=== PATIENT | male | born 1980 | race Caucasian/White ===

== ENCOUNTER 2016-04-29 22:01 | Emergency (ER) | payer MEDICAID, OTHER ==
[~2016-04-29] VITALS: Ht 175.3 cm; Wt 98.6 kg
[~2016-04-29 22:01] MED LIST: DICL75 PO
[2016-04-29 22:21] VITALS: BP 125/78; PULSE 67; RESP 18; TEMP 98.5; O2SAT 96
[2016-04-29] MEDS ORDERED: IBUP400T20 PO (22:43)
[2016-04-29] MEDS ORDERED: DOXY100C PO (23:30)
--- NOTE | 2016-04-29 23:31 | PD ---
HPI Chief Complaint: Bite or Sting Time Seen by Provider: 23:07 Travel History International Travel<30 days: No Contact w/Intl Traveler<30days: No Traveled to known affect area: No History of Present Illness HPI The patient is a 35-year-old male that sustained a tick bite several days ago and the tick was in for several days. It got inflamed around the area but only to 2 cm and did not develop erythema migrans. The patient comes in for antibiotic therapy. PFSH Past Medical History Immunizations Current: Yes Myocardial Infarction: Yes (2009) Tetanus Vaccination: < 5 Years ?: Not Social History Alcohol Use: No Tobacco Use: Yes (1PPD) Substance Use: Yes (OCCASIONAL MARIJUANA) Allergies-Medications (Allergen,Severity, Reaction): Coded Allergies: Bees (Verified Allergy, Intermediate, 04/29/16) Reported Meds & Prescriptions Reported Meds & Active Scripts Active Reported Ibuprofen 400 Mg Tab 400 Mg PO Q4H PRN Review of Systems Except as stated in HPI: all other systems reviewed are Neg Physical Exam Narrative GENERAL: Well-nourished, well-developed patient in no apparent distress. His vital signs are normal. SKIN: Warm and dry. There is a 2 cm diameter erythematous, papular area around the tick bite on the right lateral thigh. There is no red streak present and there is no erythema migrans present. HEAD: Normocephalic. EYES: No scleral icterus. No injection or drainage. NECK: Supple, trachea midline. No JVD or lymphadenopathy. CARDIOVASCULAR: Regular rate and rhythm without murmurs, gallops, or rubs. RESPIRATORY: Breath sounds equal bilaterally. No accessory muscle use. GASTROINTESTINAL: Abdomen soft, non-tender, nondistended. MUSCULOSKELETAL: No cyanosis, or edema. BACK: Nontender without obvious deformity. No CVA tenderness. Data Data Last Documented VS Vital Signs Date Time Temp Pulse Resp B/P Pulse Ox O2 Delivery O2 Flow Rate FiO2 04/29/16 22:21 98.5 67 18 125/78 96 MDM Medical Decision Making Medical Screen Exam Complete: Yes Emergency Medical Condition: Yes Medical Record Reviewed: Yes Differential Diagnosis Tick bite, infected with staph, early erythema migrans, Narrative Course The patient has an infected tick bite. We will need to cover staph as well as give the patient doxycycline for prevention of Lyme disease. Plan: The patient was given Bactroban ointment as well as doxycycline 500 mg twice daily for 10 days. Diagnosis Primary Impression: Infected tick bite of hip Additional Instructions: A heating pad as useful, turn the pad on its lowest setting an interpose a towel between your skin and the pad. Warmth is desirable but not hot. If worse , you may need to return to the emergency department. Med/Other Pt SpecificInfo: Prescription(s) given Scripts Doxycycline Hyclate 100 Mg Qrs293 Mg PO BID #20 CAP Ref 0 Prov:Trevor Montalvo MD 04/29/16 Disposition: 01 DISCHARGE HOME Condition: Stable Trevor Montalvo MD Apr 29, 2016 23:30
[2016-04-29] MEDS ORDERED: MUPI2OIN TOPICAL (23:43)
[2016-04-29] MEDS ORDERED: DOXYCYCLINE HYCLATE 100 MG TAB PO ONE (23:45)
[2016-04-29] MEDS ORDERED: DOXYCYCLINE HYCLATE 100 MG CAP PO ONE (23:45)
== END 2016-04-30 00:15 | disposition home or self-care (01) ==
LOC: PHED 22:01
DX: S70.261A Insect bite (nonvenomous), right hip, initial encounter (principal); F17.210 Nicotine dependence, cigarettes, uncomplicated; W57.XXXA Bitten or stung by nonvenomous insect and other nonvenomous arthropods, initial encounter; Y93.9 Activity, unspecified; Y92.9 Unspecified place or not applicable; Y99.9 Unspecified external cause status
CPT/HCPCS: 99281

== ENCOUNTER 2017-02-15 22:50 | Emergency (ER) | payer MEDICAID ==
[~2017-02-15] VITALS: Ht 175.3 cm; Wt 97.0 kg
[~2017-02-15 22:50] MED LIST changes: -DICL75 PO; +DOXY100C PO; +IBUP1TAB5 PO; +MUPI2OIN TOPICAL
[2017-02-15 22:52] VITALS: BP 191/106; PULSE 70; RESP 16; TEMP 97.8; O2SAT 100
--- NOTE | 2017-02-15 23:24 | PD ---
HPI Chief Complaint: Injury Time Seen by Provider: 23:24 Travel History International Travel<30 days: No Contact w/Intl Traveler<30days: No Traveled to known affect area: No History of Present Illness HPI The patient is a 36 year old male who presents to the [facility] emergency department with a history of at approximately 10:30 PM today while doing an art project with this child cutting his left fourth and fifth digit with utility knife. He reports that it was a new knife, therefore it was very sharp. He reports that he is right hand dominant. He is a chef's assistant. He reports that the bone was sticking out of the open wound on his pinky. The patient reports that he was able to recover it with skin. He reports having severe pain along the lateral aspect of the left hand over the distal fifth metacarpal as well as the proximal fifth digit. The patient has decreased range of motion of the fourth and fifth digit with extension. The patient reports having tingling sensations of the left side of his hand and fourth and fifth digit. The patient denies having any other injury associated with this. His Tetanus was last updated in 2014. [facility] Past Medical History Narrative Medical The patient's past medical history is significant for hypertension diagnosed in 2008, without any recurrence. Diminished Hearing: Yes (LEFT SIDE) Hypertension: Yes Immunizations Current: Yes Myocardial Infarction: Yes (2009 - PT DENIES RI) Tetanus Vaccination: < 5 Years Past Surgical History Narrative Surgical The patient's past surgical history is reportedly none. Oral Surgery: Yes Other Surgery: Yes (LEFT LEG) Social History Alcohol Use: No Tobacco Use: Yes (2 CIGS A DAY) Substance Use: Yes (OCCASIONAL MARIJUANA) Allergies-Medications (Allergen,Severity, Reaction): Coded Allergies: bee venom protein (honey bee) (Verified Allergy, Intermediate, 02/15/17) Reported Meds & Prescriptions Reported Meds & Active Scripts Active Keflex (Cephalexin) 500 Mg Capsule 500 Mg PO QID Narrative Medication None. Review of Systems Except as stated in HPI: all other systems reviewed are Neg General / Constitutional: No: Fever Eyes: No: Visual changes HENT: No: Headaches Cardiovascular: No: Chest Pain or Discomfort Respiratory: No: Shortness of Breath Gastrointestinal: No: Abdominal Pain Genitourinary: No: Dysuria Musculoskeletal: Positive: Myalgias, Arthralgias, Pain Skin: No Rash Neurologic: Positive: Sensory Disturbance, No: Weakness, Focal Abnormalities, Change in Mentation, Slurred Speech Psychiatric: No: Depression Endocrine: No: Polydipsia Hematologic/Lymphatic: No: Easy Bruising Physical Exam Narrative General: The patient is a well-developed well-nourished male in no acute distress Head and Neck exam: Head is normocephalic atraumatic. Eyes: Pupils are equal round and reactive to light. Nose: Midline septum with pink mucous membranes Mouth: Dentition unremarkable. Moist mucus membranes. Posterior oropharynx is not erythematous. No tonsillar hypertrophy. Uvula midline. Airway patent. Neck: No palpable lymphadenopathy. No nuchal rigidity. No thyromegaly. Cardiovascular: Regular rate and rhythm without murmurs, gallops, or rubs. Lungs: Clear to auscultation bilaterally. No wheezes, rhonchi, or rales. Abdomen: Soft, without tenderness to palpation in all 4 quadrants of the abdomen. No guarding, rebound, or rigidity. Normal bowel sounds are audible. Extremities: No clubbing, cyanosis, or edema. 2+ pulses in all 4 extremities. On examination of the left hand, the area of interest the patient reports having pain along the fifth distal metacarpal. The patient has his left fourth and fifth digit flexed. The patient reports that he is unable to extend his fingers at the PIP joint. Along the dorsal aspect of the PIP joint of the fourth and fifth digit there is a 1-1/2 cm laceration noted to both sites. Bleeding is controlled. The patient reports having tingling sensations along the left side of his hand and both the fourth and fifth digit. Back: No spinous process tenderness to palpation. No costovertebral angle tenderness to palpation. Neurologic Exam: Grossly nonfocal. Skin Exam: No rash noted. Skin is warm and dry. Data Data Last Documented VS Vital Signs Date Time Temp Pulse Resp B/P (MAP) Pulse Ox O2 Delivery O2 Flow Rate FiO2 02/16/17 02:45 02/15/17 23:50 19 99 Room Air 02/15/17 22:52 97.8 70 Orders Orders Hand, Complete ([id number]) (02/15/17 23:29) Complete Blood Count With Diff (02/15/17 23:30) Comprehensive Metabolic Panel (02/15/17 23:30) Prothrombin Time / Inr (Pt) (02/15/17 23:30) Act Partial Throm Time (Ptt) (02/15/17 23:30) Iv Access Insert/Monitor (02/15/17 23:30) Ecg Monitoring (02/15/17 23:30) Oximetry (02/15/17 23:30) Sodium Chlor 0.9% 1000 Ml Inj (Ns 1000 M (02/15/17 23:45) Ondansetron Inj (Zofran Inj) (02/15/17 23:45) Morphine Inj (Morphine Inj) (02/15/17 23:45) Cefazolin 2 Gm Premix (Ancef 2 Gm Premix (02/15/17 23:45) Bupivacaine Pf 0.5% Inj (Marcaine Pf 0.5 (02/16/17 01:00) Splint Or Brace Apply/Monitor (02/16/17 01:37) Ed Discharge Order (02/16/17 02:38) Acetamin-Hydrocod 325-5 Mg ([place] 5-325 (02/16/17 03:00) Fiberglass Splint Forearm Adul (02/15/17 ) Labs Laboratory Tests Test 02/15/17 23:50 White Blood Count 12.7 TH/MM3 Red Blood Count 4.78 MIL/MM3 Hemoglobin 14.8 GM/DL Hematocrit 44.1 % Mean Corpuscular Volume 92.3 FL Mean Corpuscular Hemoglobin 31.1 PG Mean Corpuscular Hemoglobin Concent 33.6 % Red Cell Distribution Width 13.1 % Platelet Count 231 TH/MM3 Mean Platelet Volume 9.5 FL Neutrophils (%) (Auto) 56.6 % Lymphocytes (%) (Auto) 27.1 % Monocytes (%) (Auto) 8.5 % Eosinophils (%) (Auto) 6.9 % Basophils (%) (Auto) 0.9 % Neutrophils # (Auto) 7.2 TH/MM3 Lymphocytes # (Auto) 3.4 TH/MM3 Monocytes # (Auto) 1.1 TH/MM3 Eosinophils # (Auto) 0.9 TH/MM3 Basophils # (Auto) 0.1 TH/MM3 CBC Comment DIFF FINAL Differential Comment Prothrombin Time 10.0 SEC Prothromb Time International Ratio 0.9 RATIO Activated Partial Thromboplast Time 26.9 SEC Blood Urea Nitrogen 14 MG/DL Creatinine 1.02 MG/DL Random Glucose 93 MG/DL Total Protein 7.2 GM/DL Albumin 4.1 GM/DL Calcium Level 9.0 MG/DL Alkaline Phosphatase 47 U/L Aspartate Amino Transf (AST/SGOT) 13 U/L Alanine Aminotransferase (ALT/SGPT) 38 U/L Total Bilirubin 0.3 MG/DL Sodium Level 137 MEQ/L Potassium Level 3.8 MEQ/L Chloride Level 104 MEQ/L Carbon Dioxide Level 26.7 MEQ/L Anion Gap 6 MEQ/L Estimat Glomerular Filtration Rate 82 ML/MIN MDM Medical Decision Making Medical Screen Exam Complete: Yes Emergency Medical Condition: Yes Medical Record Reviewed: Yes Interpretation(s) Last Impressions Hand X-Ray 02/15/17 4368 Signed Impressions: Service Date/Time: Wednesday, February 15, 2017 23:57 - CONCLUSION: The fifth digit is held in flexion. Jose North MD Differential Diagnosis Open fracture, versus dislocation, versus tendon injury, versus nerve injury, versus simple laceration Narrative Course During the course of the patients emergency department visit, the patients history, examination, and differential diagnosis were reviewed with the patient. The patient was placed on a pc analyst with oximetry and frequent blood pressure monitoring. The patient had IV access obtained and blood work sent for analysis. An x-ray was done to further evaluate the patient's injury. The patient was initially provided Ancef 2 g IV, normal saline a 1 L IV fluid bolus, morphine 4 mg IV, Zofran 4 mg IV. The patients laboratory studies were reviewed and remarkable for a white count of 12.7, hemoglobin 14.8, platelets 231 with 8.5 monocytes, CMP is remarkable for a GFR of 82, AST 13, PT 10, PTT 26.9. Radiology studies were reviewed and remarkable for an x-ray that shows no acute bony abnormality, however there is the patient's fifth digit is held in flexion at the PIP joint. Jacob Eckert, the physician retail administrative assistant was consultative regarding wound irrigation and assessment. After the patient's wound was anesthetized, the patient was noted to have extensor tendon involvement and extension of the wound down into the joint of the PIP joint. He did speak to the hand surgeon on -call, Dr. Ly regarding this patient's case. She requested that the patient' s wound be irrigated and then the skin repaired and that the patient follow-up with her in the office tomorrow. The patient is resting comfortably and feels better, is alert and in no distress. The patients results and examination findings were discussed with the patient. The repeat examination is unremarkable and benign. The history, exam, diagnostic testing, and current condition do not suggest any significant pathology to warrant further testing, continued ED treatment, admission, or surgical evaluation at this point. The vital signs have been stable. The patient does not have uncontrollable pain, intractable vomiting, or other significant symptoms. The patient's condition is stable and appropriate for discharge. The patient will pursue further outpatient evaluation with a primary care physician or other designated or consulting physician as indicated in the discharge instructions. The patient expressed understanding and was agreeable with this plan. Diagnosis Primary Impression: Extensor tendon laceration of left hand with open wound Qualified Codes: S66.822A - Laceration of other specified muscles, fascia and tendons at wrist and hand level, left hand, initial encounter; S61.402A - Unspecified open wound of left hand, initial encounter Referrals: Leyla Ly MD call for appointment call in the morning to be seen in the [facility] later today Patient Instructions: General Instructions, Tendon Laceration (ED) Med/Other Pt SpecificInfo: Prescription(s) given Scripts Cephalexin (Keflex) 500 Mg Capsule 500 MG PO QID for Infection, #40 CAP 0 Refills Prov: Taylor Trevino MD 02/16/17 Disposition: 01 DISCHARGE HOME Condition: Stable Taylor Trevino MD Feb 15, 2017 23:24
[2017-02-15] MEDS ORDERED: MORPHINE SULFATE 4 MG/ML INJ IV PUSH ONE (23:45)
[2017-02-15] MEDS ORDERED: ceFAZolin 2 GM PREMIX 50 ML IV ONE (23:45)
[2017-02-15] MEDS ORDERED: ONDANSETRON HCL 4 MG/2 ML VIAL IV ONE (23:45)
[2017-02-15] MEDS ORDERED: SODIUM CHLOR 0.9% 1000 ML INJ 1,000 ML IV ONE (23:45)
[2017-02-15 23:50] VITALS: RESP 19; O2SAT 99
[2017-02-16 00:14] LABS: AUTOMATED NEUTROPHIL # 7.2 TH/MM3 (1.8-7.7); BASOPHIL # 0.1 TH/MM3 (0-0.2); BASOPHIL % 0.9 % (0.0-2.0); EOSINOPHIL # 0.9 TH/MM3 (0-0.4); EOSINOPHIL % 6.9 % (0.0-4.0); HEMATOCRIT 44.1 % (39.0-51.0); HEMO FLAGS DIFF FINAL; LYMPH % 27.1 % (9.0-44.0); LYMPHOCYTE # 3.4 TH/MM3 (1.0-4.8); MEAN CELL VOLUME 92.3 FL (80.0-100.0); MEAN CORPUSCULAR HEMOGLOBIN 31.1 PG (27.0-34.0); MEAN CORPUSCULAR HGB CONC 33.6 % (32.0-36.0); MONO % 8.5 % (0.0-8.0); NEUT % 56.6 % (16.0-70.0); PLATELET COUNT 231 TH/MM3 (150-450); RED BLOOD COUNT 4.78 MIL/MM3 (4.50-5.90); RED CELL DISTRIBUTION WIDTH 13.1 % (11.6-17.2); WHITE BLOOD COUNT 12.7 TH/MM3 (4.0-11.0)
--- NOTE | 2017-02-16 00:23 | RADRPT ---
EXAM DATE/TIME: 02/15/2017 23:57 [facility] COMPARISON: No previous studies available for comparison. INDICATIONS : Cut hand with utility knife, 4th and 5th digit, unable to extend 5th digit. MEDICAL HISTORY : None. SURGICAL HISTORY : None. ENCOUNTER: Initial ACUITY: 1 day PAIN SCORE: 0/10 LOCATION: Left hand FINDINGS: The fifth digit is held in flexion. Flexion is most pronounced at the PIP level. No fracture is seen. No foreign body seen. CONCLUSION: The fifth digit is held in flexion. Jose North MD on February 16, 2017 at 0:20 Board Certified Radiologist. This report was verified electronically.
[2017-02-16 00:27] LABS: APTT (PATIENT) 26.9 SEC (24.3-30.1); INTERNATIONAL NORMALIZED RATIO 0.9 RATIO
[2017-02-16 00:29] LABS: ALT (GPT) 38 U/L (12-78); ANION GAP 6 MEQ/L (5-15); AST (GOT) 13 U/L (15-37); BICARBONATE 26.7 MEQ/L (21.0-32.0); BLOOD UREA NITROGEN 14 MG/DL (7-18); CHLORIDE 104 MEQ/L (98-107); GLOMERULAR FILTRATION RATE 82 ML/MIN (>89); POTASSIUM 3.8 MEQ/L (3.5-5.1); SODIUM (NA) 137 MEQ/L (136-145)
[2017-02-16 00:31] LABS: ALKALINE PHOSPHATASE 47 U/L (45-117); TOTAL BILIRUBIN ADULT 0.3 MG/DL (0.2-1.0)
[2017-02-16] MEDS ORDERED: BUPIVACAINE HCL PF 0.5% 30 ML VIAL INFIL ONE (01:00)
--- NOTE | 2017-02-16 01:54 | PD ---
Physical Exam Date Seen by Provider: Feb 16, 2017 Time Seen by Provider: 01:45 Narrative Left hand: Patient has lacerations involving the ring and little finger. The first laceration involves the ring finger over the middle phalanx proximal portion just distal to the PIP joint. The laceration measures 1.6 cm. Laceration goes into the subcutaneous tissues but does not lacerate any tendon or joint. Patient complains of decreased sensation distally to the laceration but it does not appear to be involving a digital nerve sensory exam is partial normal. Patient also has a laceration over the PIP of the little finger. The laceration measures 1.5 cm and goes through the extensor tendon and into the joint. The distal end of the proximal phalanx is exposed. Patient is unable to extend his finger at the PIP joint. Finger is in a boutonniere type deformity. Patient has decreased sensation from the laceration down. Data Data Last Documented VS Vital Signs Date Time Temp Pulse Resp B/P (MAP) Pulse Ox O2 Delivery O2 Flow Rate FiO2 02/15/17 23:50 19 99 Room Air 02/15/17 22:52 97.8 70 Orders Orders Hand, Complete ([id number]) (02/15/17 23:29) Complete Blood Count With Diff (02/15/17 23:30) Comprehensive Metabolic Panel (02/15/17 23:30) Prothrombin Time / Inr (Pt) (02/15/17 23:30) Act Partial Throm Time (Ptt) (02/15/17 23:30) Iv Access Insert/Monitor (02/15/17 23:30) Ecg Monitoring (02/15/17 23:30) Oximetry (02/15/17 23:30) Sodium Chlor 0.9% 1000 Ml Inj (Ns 1000 M (02/15/17 23:45) Ondansetron Inj (Zofran Inj) (02/15/17 23:45) Morphine Inj (Morphine Inj) (02/15/17 23:45) Cefazolin 2 Gm Premix (Ancef 2 Gm Premix (02/15/17 23:45) Bupivacaine Pf 0.5% Inj (Marcaine Pf 0.5 (02/16/17 01:00) Splint Or Brace Apply/Monitor (02/16/17 01:37) Labs Laboratory Tests Test 02/15/17 23:50 White Blood Count 12.7 TH/MM3 Red Blood Count 4.78 MIL/MM3 Hemoglobin 14.8 GM/DL Hematocrit 44.1 % Mean Corpuscular Volume 92.3 FL Mean Corpuscular Hemoglobin 31.1 PG Mean Corpuscular Hemoglobin Concent 33.6 % Red Cell Distribution Width 13.1 % Platelet Count 231 TH/MM3 Mean Platelet Volume 9.5 FL Neutrophils (%) (Auto) 56.6 % Lymphocytes (%) (Auto) 27.1 % Monocytes (%) (Auto) 8.5 % Eosinophils (%) (Auto) 6.9 % Basophils (%) (Auto) 0.9 % Neutrophils # (Auto) 7.2 TH/MM3 Lymphocytes # (Auto) 3.4 TH/MM3 Monocytes # (Auto) 1.1 TH/MM3 Eosinophils # (Auto) 0.9 TH/MM3 Basophils # (Auto) 0.1 TH/MM3 CBC Comment DIFF FINAL Differential Comment Prothrombin Time 10.0 SEC Prothromb Time International Ratio 0.9 RATIO Activated Partial Thromboplast Time 26.9 SEC Blood Urea Nitrogen 14 MG/DL Creatinine 1.02 MG/DL Random Glucose 93 MG/DL Total Protein 7.2 GM/DL Albumin 4.1 GM/DL Calcium Level 9.0 MG/DL Alkaline Phosphatase 47 U/L Aspartate Amino Transf (AST/SGOT) 13 U/L Alanine Aminotransferase (ALT/SGPT) 38 U/L Total Bilirubin 0.3 MG/DL Sodium Level 137 MEQ/L Potassium Level 3.8 MEQ/L Chloride Level 104 MEQ/L Carbon Dioxide Level 26.7 MEQ/L Anion Gap 6 MEQ/L Estimat Glomerular Filtration Rate 82 ML/MIN MDM Medical Record Reviewed: Yes Supervised Visit with MARTIN: Yes Interpretation(s) Last 24 hours Impressions Hand X-Ray 02/15/17 2555 Signed Impressions: Service Date/Time: Wednesday, February 15, 2017 23:57 - CONCLUSION: The fifth digit is held in flexion. Jose North MD Differential Diagnosis MDM: High Differential diagnoses: Fracture, sprain, strain, dislocation, contusion, neurovascular injury Narrative Course Patient has a laceration involving the ring and little finger. The laceration of the little finger goes through the extensor tendon into the joint. The case has been discussed with Dr. Ly the hand surgeon early childhood education specialist. She has requested that we close the wound put the patient in extension splint and have them follow -up in the office tomorrow. She states that she would like him a call the office first thing in the morning and she will see them in the [place] office evaluate the patient's treatment plan. Patient is aware that plan and is in agreement. Procedures Procedure Narrative LACERATION LOCATION: Left ring finger dorsal proximal phalanx LENGTH: 1.6 cm NUMBER OF STITCHES/JIMMY: 6 REPAIR: The area of the laceration was prepped with Betadine and sterilely draped. The laceration was infiltrated with 1% lidocaine and 0.5% Marcaine digital block. The wound was copiously irrigated and explored without evidence of foreign body, tendon injury or neurovascular injury. The wound was closed using 5-0 proline. This was a simple single layer repair. A sterile dressing was applied. The patient was advised to keep the dressing clean and dry. Patient tolerated the procedure well. LACERATION LOCATION: Left little finger over the PIP joint LENGTH: 1.5 cm NUMBER OF STITCHES/JIMMY: 6 REPAIR: The area of the laceration was prepped with Betadine and sterilely draped. The laceration was infiltrated with 1% lidocaine and 0.5% Marcaine digital block. The wound was copiously irrigated and explored without evidence of foreign body. Positive extensor Tendon injury and questionable digital nerve injury. Patient has an open joint laceration with a boutonniere deformity The wound was closed using 5-0 proline. This was a single layer repair. A sterile dressing was applied. Patient is placed in a splint in extension. The patient was advised to keep the dressing clean and dry. Patient tolerated the procedure well. Diagnosis Primary Impression: l little finger laceration with open joint and extensor tendon laceration Additional Impression: Laceration of left ring finger Qualified Codes: S61.215A - Laceration without foreign body of left ring finger without damage to nail, initial encounter Referrals: Leyla Ly MD 1 day Departure Forms: Tests/Procedures, Work Release Special Instructions: No work 02/16/17. No use of the left hand until released by orthopedics. Additional Instruction: Rest. Strict elevation above your heart at all times. Keep your dressings on them clean and dry. Follow-up with Dr. Ly tomorrow. Call the office first thing tomorrow morning at 9:00 for an appointment in [place]. Medications as directed. Return to the ER if any problems. Med/Other Pt SpecificInfo: Prescription(s) given Scripts No Active Prescriptions or Reported Meds Disposition: 01 DISCHARGE HOME Condition: Jacob Mccracken Feb 16, 2017 01:54
[2017-02-16] MEDS ORDERED: CEPH-460 PO (02:13)
[2017-02-16] MEDS ORDERED: ACETAMINOPHEN/HYDROcodone 325 MG/5 MG TAB PO ONE (03:00)
[2017-02-17] MEDS ORDERED: NORC5TAB PO (11:16)
[2017-02-23] MEDS ORDERED: IBUP1TAB7 PO (13:06)
[2017-02-23] MEDS ORDERED: HYDR-3288 PO (13:06)
[2017-02-23] MEDS ORDERED: CEPH-460 PO (13:06)
== END 2017-02-16 02:58 | disposition home or self-care (01) ==
LOC: NEPC 22:50
DX: S66.327A Laceration of extensor muscle, fascia and tendon of left little finger at wrist and hand level, initial encounter (principal); S61.215A Laceration without foreign body of left ring finger without damage to nail, initial encounter; F17.210 Nicotine dependence, cigarettes, uncomplicated; W26.0XXA Contact with knife, initial encounter; Y93.89 Activity, other specified
CPT/HCPCS: 12002; 29125; 73130; 80053; 85025; 85610; 85730; 96374; 96375; 99284; J0690; J2270; J2405; J7030

== ENCOUNTER → 2017-02-23 | Day surgery (SDC) | payer MEDICAID ==
[~2017-02-23] VITALS: Ht 175.3 cm; Wt 95.9 kg
[~2017-02-23] MED LIST changes: +BUPIVACAINE HCL PF 0.5% 30 ML VIAL ONE; +CEPH-460 PO; +FAMOTIDINE 20 MG/2 ML VIAL ONE; +HYDR-3288 PO; +IBUP1TAB7 PO; +LACTATED RINGER'S 1000 ML INJ 1,000 ML ONE; +LIDOCAINE HCL 2% 50 ML VIAL ONE; +MIDAZOLAM HCL 2 MG/2 ML VIAL ONE; +NEOMYCIN/POLYMYXIN 1 ML G.U. IRRIGANT ONE; +NORC5TAB PO; +ceFAZolin 2 GM PREMIX 50 ML IV SCH
[2017-02-23 10:50] LABS: HEMATOCRIT 45.7 % (39.0-51.0); MEAN CELL VOLUME 92.5 FL (80.0-100.0); MEAN CORPUSCULAR HEMOGLOBIN 30.5 PG (27.0-34.0); MEAN CORPUSCULAR HGB CONC 32.9 % (32.0-36.0); PLATELET COUNT 246 TH/MM3 (150-450); RED BLOOD COUNT 4.93 MIL/MM3 (4.50-5.90); RED CELL DISTRIBUTION WIDTH 12.6 % (11.6-17.2); REVIEW FLAG FINAL; WHITE BLOOD COUNT 11.4 TH/MM3 (4.0-11.0)
[2017-02-23 13:01] VITALS: PULSE 67
[2017-02-23 14:00] VITALS: PULSE 69; TEMP 97.8
[2017-02-23 14:30] VITALS: BP 129/82; PULSE 66; RESP 14; O2SAT 96
--- NOTE | 2017-02-23 15:30 | MP ---
cc: NATHAN HAMPTON III, M.D. DATE OF SURGERY: 02/23/2017 PREOPERATIVE DIAGNOSIS 1. Laceration left fourth and fifth fingers with tendon involvement. PROCEDURE 1. Left fifth finger exploration and extensor tendon repair. 2. Left fourth finger exploration and extensor tendon repair. 3. Use of image intensifier. SURGEON Nathan Hampton III, MD PROCEDURE The patient was brought to the operating room and placed supine on the operating table. After the correct site and side of surgery were verified by members of each team in the room multiple times including the patient, myself and after adequate preoperative markings, preoperative written consent were verified by everyone and after adequate preoperative time-out was performed to everyone's satisfaction, after adequate general anesthesia had been achieved, the left upper extremity was prepped and draped in traditional sterile surgical fashion. A 50/50 mixture of 2% plain lidocaine and 0.5% plain Marcaine was infiltrated into the skin and subcutaneous tissue on the dorsal aspect of the fourth and fifth fingers. The limb was exsanguinated and using Chandana wrap, highly placed well-padded axillary tourniquet was inflated to 200 mmHg for a total of 47 minutes. The existing sutures were removed. Exploration was performed. There was a small injury to the radial aspect of the lateral bands of the extensor mechanism of the fourth finger. This was thoroughly irrigated and debrided and repaired using [id number] 3-0 Ethibond suture. There were no other anatomic abnormalities. The skin edges were reapproximated using interrupted 5-0 Chromic sutures after thorough irrigation. Tenodesis was performed and the fourth finger moved normally. The fifth finger was then attended to and of note, during the tenodesis the normal flexion cascade was consistently observed but there was complete transection of the extensor tendon at its insertion into the middle phalanx. A 0.035 cm K-wire was inserted into the bone but the tip of it broke off, either due to defect in the wire or just the bone being so solid, therefore a 0.045 cm K-wire was inserted and then the joint placed in extension and after a very thorough irrigation was performed. Of note, the tip was well below the surface of the bone and/or the cartilage with no exposed parts and therefore, it would not intrude into the joint. This was also verified using mini C-arm. The joint is pinned in extension and then a mini Mitek suture anchor was placed into the middle phalanx and a 2-0 Ethibond suture attached was used to thoroughly repair the distal insertion. The lateral bands were then repaired using [id number] sutures from the same suture. There were no other anatomic abnormalities identified. The skin edges reapproximated using interrupted and running 5-0 Chromic sutures. The hand and arm were thoroughly cleansed and dried. There was no penetration through the joint to affect the flexor tendons in anyway, nor were the neurovascular bundles involved in anyway. Thorough irrigation was performed multiple times throughout the case and prior to the final closure. The K-wire was tailored to length, cut, bent and Samantha ball were applied. Betadine and Xeroform was applied around the Samantha ball as well as Betadine Adaptic dressing on dorsal aspect of the fourth and fifth fingers. The hand and arm were thoroughly cleansed and dried. A bulky well-padded, well molded volar immobilizing extension splint was made in the usual fashion leaving only the thumb free, short-arm length. The axillary tourniquet was released and the hand and all the fingers became immediately soft, pink and warm and had brisk capillary refill of less than 2 seconds. The patient was awakened from anesthesia and transported to the Post Anesthesia Care Unit awake and in stable condition at the end of the case. Sponge, needle, instrument counts were correct at the end of the case as reported by nurses in the room. MD NATALYA Sandoval III/ESTELA /1:11 PM /2:57 PM
== END | disposition home or self-care (01) ==
LOC: PHSDC 09:53
PROVIDERS: ATTEND Orthopaedic Surgery Hand Surgery
DX: S66.325A Laceration of extensor muscle, fascia and tendon of left ring finger at wrist and hand level, initial encounter (principal); S66.327A Laceration of extensor muscle, fascia and tendon of left little finger at wrist and hand level, initial encounter; F17.210 Nicotine dependence, cigarettes, uncomplicated; W26.0XXA Contact with knife, initial encounter; Y93.89 Activity, other specified
CPT/HCPCS: 01810; 26418; 36415; 76000; 85027; J0690; J2250; J7120

== ENCOUNTER 2017-02-25 23:27 | Emergency (ER) | payer MEDICAID ==
[~2017-02-25] VITALS: Ht 175.3 cm; Wt 97.0 kg
[~2017-02-25 23:27] MED LIST changes: -BUPIVACAINE HCL PF 0.5% 30 ML VIAL ONE; -DOXY100C PO; -FAMOTIDINE 20 MG/2 ML VIAL ONE; -IBUP1TAB5 PO; -LACTATED RINGER'S 1000 ML INJ 1,000 ML ONE; -LIDOCAINE HCL 2% 50 ML VIAL ONE; -MIDAZOLAM HCL 2 MG/2 ML VIAL ONE; -MUPI2OIN TOPICAL; -NEOMYCIN/POLYMYXIN 1 ML G.U. IRRIGANT ONE; -ceFAZolin 2 GM PREMIX 50 ML IV SCH
[2017-02-25 23:35] VITALS: BP 154/89; PULSE 96; RESP 20; TEMP 99; O2SAT 96
[2017-02-26] MEDS ORDERED: ACETAMINOPHEN/HYDROcodone 325 MG/5 MG TAB PO ONE (00:45)
[2017-02-26 01:11] VITALS: BP 144/82; PULSE 69; RESP 16; O2SAT 99
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
== END 2017-02-26 01:25 | disposition home or self-care (01) ==
LOC: PHED 23:27
DX: G89.18 Other acute postprocedural pain (principal); I10 Essential (primary) hypertension; Z72.0 Tobacco use
CPT/HCPCS: 99283

== ENCOUNTER 2017-03-05 21:16 | Emergency (ER) | payer MEDICAID ==
[~2017-03-05] VITALS: Ht 175.3 cm; Wt 97.7 kg
[~2017-03-05 21:16] MED LIST changes: -HYDR-3288 PO; -NORC5TAB PO
[2017-03-05 21:23] VITALS: BP 141/83; PULSE 81; RESP 22; TEMP 99; O2SAT 97
[2017-03-05] MEDS ORDERED: ACETAMINOPHEN/HYDROcodone 325 MG/5 MG TAB PO ONE (21:45)
--- NOTE | 2017-03-05 21:59 | RADRPT ---
EXAM DATE/TIME: 03/05/2017 21:42 [facility] COMPARISON: HAND LEFT COMPLETE ([id number]), February 15, 2017, 23:57. INDICATIONS : Fell today. 5th digit pain post fall. MEDICAL HISTORY : None. SURGICAL HISTORY : 5th digit surgery on the 02/15/17. ENCOUNTER: Initial ACUITY: 1 day PAIN SCORE: 6/10 LOCATION: Left whole 5th digit. FINDINGS: There is wire fixation at the proximal interphalangeal joint of fifth finger. No acute fracture is id entified. No dislocation. CONCLUSION: 1. Wire fixation of proximal interphalangeal joint left fifth finger. No dislocation. Jacob Cho MD on March 05, 2017 at 21:56 Board Certified Radiologist. This report was verified electronically.
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
[2017-03-05 23:25] VITALS: RESP 18
== END 2017-03-05 22:23 | disposition home or self-care (01) ==
LOC: PHED 21:16
DX: M79.642 Pain in left hand (principal); I10 Essential (primary) hypertension; W01.198A Fall on same level from slipping, tripping and stumbling with subsequent striking against other object, initial encounter; Y93.01 Activity, walking, marching and hiking; Z72.0 Tobacco use
CPT/HCPCS: 73130; 99283

== ENCOUNTER 2017-07-16 02:30 | Emergency (ER) | payer MEDICAID ==
[~2017-07-16 02:30] MED LIST changes: -CEPH-460 PO
[2017-07-16 02:35] VITALS: BP 163/89; PULSE 79; RESP 18; TEMP 97.5; O2SAT 99
[2017-07-16 02:48] VITALS: BP 172/103; PULSE 70; RESP 18; O2SAT 97
[2017-07-16] MEDS ORDERED: SODIUM CHLORID 0.9% 500 ML INJ 500 ML IV ONE (03:00)
[2017-07-16] MEDS ORDERED: CLINDAMYCIN 600 MG/NS PREMIX 50 ML IV ONE (03:00)
[2017-07-16] MEDS ORDERED: KETOROLAC TROMETHAMINE 30 MG/ML (IVP) VIAL IV PUSH ONE (03:00)
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
[2017-07-16 03:29] LABS: AUTOMATED NEUTROPHIL # 7.2 TH/MM3 (1.8-7.7); BASOPHIL # 0.1 TH/MM3 (0-0.2); BASOPHIL % 0.8 % (0.0-2.0); EOSINOPHIL # 0.5 TH/MM3 (0-0.4); EOSINOPHIL % 3.8 % (0.0-4.0); HEMATOCRIT 44.9 % (39.0-51.0); HEMOGLOBIN 15.5 GM/DL (13.0-17.0); LYMPH % 28.7 % (9.0-44.0); LYMPHOCYTE # 3.6 TH/MM3 (1.0-4.8); MEAN CELL VOLUME 89.9 FL (80.0-100.0); MEAN CORPUSCULAR HEMOGLOBIN 31.1 PG (27.0-34.0); MEAN CORPUSCULAR HGB CONC 34.6 % (32.0-36.0); MEAN PLATELET VOLUME 9.5 FL (7.0-11.0); MONO % 8.8 % (0.0-8.0); MONOCYTE # 1.1 TH/MM3 (0-0.9); NEUT % 57.9 % (16.0-70.0); PLATELET COUNT 247 TH/MM3 (150-450); RED CELL DISTRIBUTION WIDTH 12.6 % (11.6-17.2); WHITE BLOOD COUNT 12.5 TH/MM3 (4.0-11.0)
[2017-07-16 03:39] LABS: BICARBONATE 29.2 MEQ/L (21.0-32.0); CREATININE 1.14 MG/DL (0.60-1.30)
[2017-07-16] MEDS ORDERED: BACT800T5 PO (03:56)
== END 2017-07-16 04:05 | disposition home or self-care (01) ==
LOC: NEPC 02:30
DX: L08.9 Local infection of the skin and subcutaneous tissue, unspecified (principal); R51 Headache; R50.9 Fever, unspecified
CPT/HCPCS: 80048; 83605; 85025; 87040; 96374; 96375; 99284; J1885; J7040

== ENCOUNTER 2017-08-19 20:54 | Emergency (ER) | payer OTHER, MEDICAID ==
[~2017-08-19] VITALS: Ht 175.3 cm; Wt 97.0 kg
[~2017-08-19 20:54] MED LIST changes: +BACT800T5 PO; -IBUP1TAB7 PO
[2017-08-19 21:39] VITALS: BP 167/100; PULSE 68; RESP 20; TEMP 98.3; O2SAT 100
[2017-08-19] MEDS ORDERED: CYCL10TA PO (22:06)
[2017-08-19] MEDS ORDERED: DICL75TA PO (22:06)
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
[2017-08-19] MEDS ORDERED: IBUPROFEN 600 MG TAB PO ONE (22:15)
[2017-08-19] MEDS ORDERED: CYCLOBENZAPRINE HCL 10 MG TAB PO ONE (22:15)
== END 2017-08-19 22:22 | disposition home or self-care (01) ==
LOC: NEPD 20:54
DX: S16.1XXA Strain of muscle, fascia and tendon at neck level, initial encounter (principal); R51 Headache; F12.90 Cannabis use, unspecified, uncomplicated; I10 Essential (primary) hypertension; F41.9 Anxiety disorder, unspecified; I25.2 Old myocardial infarction; F17.200 Nicotine dependence, unspecified, uncomplicated; V43.62XA Car passenger injured in collision with other type car in traffic accident, initial encounter; Z86.69 Personal history of other diseases of the nervous system and sense organs
CPT/HCPCS: 99283